=== PATIENT | male | born 1975 | race African-American/Black ===

== ENCOUNTER 2018-10-11 17:19 | Emergency (ER) | payer MEDICAID ==
[~2018-10-11] VITALS: Ht 170.2 cm; Wt 77.1 kg
[2018-10-11 17:31] VITALS: BP 143/91
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
--- NOTE | 2018-10-11 17:55 | NUR ---
dr barboza at bedside
[2018-10-11] MEDS ORDERED: BACITRACIN OINT 500 UNITS/GM PKT TP ONE (18:00)
--- NOTE | 2018-10-11 18:05 | NUR ---
rigoberto emt at bedside for wound care
[2018-10-11 18:13] VITALS: BP 146/89
--- NOTE | 2018-10-11 18:13 | NUR ---
Patient discharged with v/s stable. Written and verbal after care instructions given and explained. Patient verbalized understanding. Ambulatory with steady gait. All questions addressed prior to discharge. Advised to follow up with PMD.
== END 2018-10-11 18:13 | disposition home or self-care (01) ==
LOC: MED 17:19
DX: S61.402D Unspecified open wound of left hand, subsequent encounter (principal); X58.XXXD Exposure to other specified factors, subsequent encounter
CPT/HCPCS: 99282; 99283

== ENCOUNTER 2022-12-23 14:34 | Emergency (ER) | payer MEDICAID, OTHER ==
[~2022-12-23] VITALS: Ht 177.8 cm; Wt 95.3 kg
[2022-12-23 15:10] VITALS: BP 140/98; PULSE 94; RESP 18; TEMP 98.2; O2SAT 100
[2022-12-23] MEDS ORDERED: IBUP-2213 PO (18:50)
[2022-12-23] MEDS ORDERED: BACI-418 TP (18:50)
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
== END 2022-12-23 19:23 | disposition home or self-care (01) ==
LOC: MED 14:34
DX: S62.234A Other nondisplaced fracture of base of first metacarpal bone, right hand, initial encounter for closed fracture (principal); S01.21XA Laceration without foreign body of nose, initial encounter; Z79.899 Other long term (current) drug therapy; Z98.890 Other specified postprocedural states; V87.8XXA Person injured in other specified noncollision transport accidents involving motor vehicle (traffic), initial encounter; Y93.89 Activity, other specified; Y92.89 Other specified places as the place of occurrence of the external cause; Y99.8 Other external cause status
CPT/HCPCS: 73130; 99283